=== PATIENT | female | born 1940 | race Caucasian/White ===

== ENCOUNTER 2023-04-20 08:53 | Day surgery (SDC) | payer MEDICARE, OTHER ==
[~2023-04-20 08:53] MED LIST: Lactated Ringers 1,000 ML IV SCH; Lidocaine 1% 5 ML VIAL ONE; Morphine 8 MG, EPINEPHrine 0.3 MG, Cefuroxime 750 MG, Ketorolac 30 MG, Sodium Chloride ... PRN; Propofol 200 MG/20 ML SDV ONE; Sodium Chloride 0.9% 10 ML Syringe FLUSH PRN; Sodium Chloride 0.9% 10 ML Syringe FLUSH SCH; fentaNYL 100 MCG/2 ML SDV ONE
[2023-04-20] MEDS ORDERED: oxyCODONE ER 10 MG TAB.ER PO SCH (09:00)
[2023-04-20] MEDS ORDERED: Acetaminophen 325 MG Tab PO SCH (09:00)
[2023-04-20] MEDS ORDERED: Pregabalin 25 MG Cap PO SCH (09:00)
[2023-04-20] MEDS ORDERED: Tranexamic Acid 1,000 MG/10 ML Vial ONE (09:07)
[2023-04-20] MEDS ORDERED: Vancomycin 1 GM SDV ONE (09:07)
[2023-04-20] MEDS ORDERED: ceFAZolin 2 GM Vial ONE (09:44)
[2023-04-20] MEDS ORDERED: Propofol 200 MG/20 ML SDV ONE (10:07)
[2023-04-20] MEDS ORDERED: ePHEDrine 50 MG/ML SDV ONE (10:25)
[2023-04-20] MEDS ORDERED: Lactated Ringers 1,000 ML IV ONE (10:30)
[2023-04-20] MEDS ORDERED: fentaNYL 100 MCG/2 ML SDV ONE (11:30)
[2023-04-20] MEDS ORDERED: HYDROmorphone 0.5 MG/0.5 ML Syringe IVPUSH PRN (11:30)
[2023-04-20] MEDS ORDERED: Ondansetron 4 MG/2 ML SDV IVPUSH PRN (11:30)
[2023-04-20] MEDS ORDERED: fentaNYL 100 MCG/2 ML SDV IVPUSH PRN (11:30)
[2023-04-20] MEDS ORDERED: oxyCODONE 5 MG Tab PO SCH (13:11)
== END 2023-04-20 16:45 | disposition home or self-care (01) ==
LOC: JD.SDS 08:53
PROVIDERS: ATTEND Orthopaedic Surgery
DX: M16.12 Unilateral primary osteoarthritis, left hip (principal); E78.5 Hyperlipidemia, unspecified; E55.9 Vitamin D deficiency, unspecified; E11.9 Type 2 diabetes mellitus without complications; M81.0 Age-related osteoporosis without current pathological fracture; N95.1 Menopausal and female climacteric states; N90.4 Leukoplakia of vulva; M25.521 Pain in right elbow; Z86.16 Personal history of COVID-19; Z87.891 Personal history of nicotine dependence; Z79.84 Long term (current) use of oral hypoglycemic drugs; Z98.41 Cataract extraction status, right eye; Z98.42 Cataract extraction status, left eye; Z91.040 Latex allergy status; Z88.2 Allergy status to sulfonamides; Z88.8 Allergy status to other drugs, medicaments and biological substances; Z85.3 Personal history of malignant neoplasm of breast; Z98.51 Tubal ligation status; Z96.653 Presence of artificial knee joint, bilateral
CPT/HCPCS: 0055T; 27130; 36415; 73501; 82947; 86850; 86900; 86901; 97116; 97161; A9270; C1713; C1776; J0171; J0690; J0697; J1885; J2270; J2704; J3010; J3370; J7030; J7120; 01214; 99100; J3490

== ENCOUNTER 2023-08-26 07:45 | Day surgery (SDC) | payer MEDICARE, OTHER ==
[~2023-08-26 07:45] MED LIST changes: -Lidocaine 1% 5 ML VIAL ONE; +Lidocaine 2% 5 ML SDV ONE; +ceFAZolin 2 GM Vial ONE
[2023-08-26] MEDS ORDERED: Vancomycin 1 GM SDV ONE (08:32)
[2023-08-26] MEDS ORDERED: Tranexamic Acid 1,000 MG/10 ML Vial ONE (08:32)
[2023-08-26] MEDS ORDERED: Propofol 200 MG/20 ML SDV ONE (09:24)
[2023-08-26] MEDS ORDERED: fentaNYL 100 MCG/2 ML SDV ONE ×2 (09:24→13:35)
[2023-08-26] MEDS ORDERED: ceFAZolin 2 GM Vial ONE (09:24)
[2023-08-26] MEDS ORDERED: Midazolam 1 MG/ML 2 ML SDV ONE (09:24)
[2023-08-26] MEDS ORDERED: fentaNYL 100 MCG/2 ML SDV IVPUSH PRN (09:35)
[2023-08-26] MEDS ORDERED: HYDROmorphone 0.5 MG/0.5 ML Syringe IVPUSH PRN (09:35)
[2023-08-26] MEDS ORDERED: Ondansetron 4 MG/2 ML SDV IVPUSH PRN (09:35)
[2023-08-26] MEDS ORDERED: Lidocaine 2% 5 ML SDV ONE (09:41)
[2023-08-26] MEDS ORDERED: Lactated Ringers 1,000 ML ONE (11:23)
[2023-08-26] MEDS ORDERED: Phenylephrine 1% 10 MG/ML SDV ONE (13:10)
[2023-08-26] MEDS ORDERED: oxyCODONE 5 MG Tab PO SCH (14:46)
== END 2023-08-26 15:45 | disposition home or self-care (01) ==
LOC: JD.SDS 07:45
PROVIDERS: ATTEND Orthopaedic Surgery
DX: M16.11 Unilateral primary osteoarthritis, right hip (principal); E11.9 Type 2 diabetes mellitus without complications; E78.5 Hyperlipidemia, unspecified; Z87.891 Personal history of nicotine dependence; Z79.84 Long term (current) use of oral hypoglycemic drugs; Z79.82 Long term (current) use of aspirin; Z79.899 Other long term (current) drug therapy; Z88.2 Allergy status to sulfonamides; Z88.8 Allergy status to other drugs, medicaments and biological substances; Z91.048 Other nonmedicinal substance allergy status
CPT/HCPCS: 01214; 36415; 73501-26-RT; 73501-RT; 82947; 86850; 86900; 86901; 99100; C1713; C1776; J0171; J0690; J0697; J1885; J2250; J2270; J2371; J2704; J3010; J3370; J3490; J7030; J7120